=== PATIENT | female | born 1965 | race African-American/Black ===

== ENCOUNTER 2018-09-11 15:07 | Inpatient (IN) | payer OTHER ==
[~2018-09-11] VITALS: Ht 160 cm; Wt 44.5 kg
[2018-09-11] MEDS ORDERED: SODIUM CHLORIDE 0.9% 1,000 ML IV ONE ×2 (16:16→18:30)
[2018-09-11 17:36] LABS: BASOPHILS % 0.4 % (0.0-2.0); EOSINOPHILS % 1.7 % (0.0-5.0); HEMATOCRIT. 31.6 % (36.0-48.0); HEMOGLOBIN. 10.9 g/dL (12.0-16.0); LYMPHOCYTES % 11.6 % (20.0-50.0); MEAN CORPUSCULAR HEMOGLOBIN 34.6 pg (28.0-32.0); MEAN CORPUSCULAR VOLUME 100.2 fL (81.0-99.0); MEAN PLATELET VOLUME 6.9 fl (7.4-10.4); MONOCYTES % 7.7 % (2.0-8.0); NEUTROPHILS % 78.6 % (40.0-76.0); PLATELET 342 x1000/uL (130-400); RED BLOOD CELL COUNT 3.16 mill/uL (4.2-5.4); RED CELL DISTRIBUTION WIDTH 12.4 % (11.6-14.6)
[2018-09-11 17:39] LABS: CHLORIDE 93 mEq/L (98-107)
[2018-09-11 17:40] LABS: INR 1.1
[2018-09-11] MEDS ORDERED: CALCIUM GLUCONATE 100MG/ML 10ML VIAL IV ONE (18:00)
[2018-09-11] MEDS ORDERED: FUROSEMIDE 40MG/4ML VIAL IVP ONE (18:00)
[2018-09-11] MEDS ORDERED: ALBUTEROL (0.5%) 2.5MG/0.5ML NEB HHN ONE (18:00)
[2018-09-11] MEDS ORDERED: CALCIUM GLUCONATE 1,000 MG in DEXTROSE 5% WATER 50 ML IV ONE (18:30)
[2018-09-11 19:05] LABS: CLARITY URINE CLEAR (CLEAR); COLOR URINE YELLOW (YELLOW); KETONES URINE NEGATIVE (NEGATIVE); LEUKOCYTE ESTERASE URINE NEGATIVE (NEGATIVE); NITRITE URINE NEGATIVE (NEGATIVE); OCCULT BLOOD URINE TRACE (NEGATIVE); PH URINE 5.5 (4.5-8.0); PROTEIN URINE NEGATIVE (NEGATIVE); SPECIFIC GRAVITY URINE 1.014 (1.005-1.030); UROBILINOGEN URINE 0.2 E.U./dL (0.2-1.0)
[2018-09-12] VITALS (9 sets, daily range): BP systolic 106–117; BP diastolic 63–76
[2018-09-12] MEDS: SODIUM CHLORIDE 0.9% 1,000 ML IV SCH ×2 (01:28→11:02)
[2018-09-12] MEDS ORDERED: SODIUM POLYSTYRENE SULFONATE 15 G/60 ML BOT PO NR (04:00)
[2018-09-12 06:56] LABS: BASOPHILS % 0.2 % (0.0-2.0); EOSINOPHILS % 1.8 % (0.0-5.0); HEMATOCRIT. 30.3 % (36.0-48.0); HEMOGLOBIN. 10.4 g/dL (12.0-16.0); LYMPHOCYTES % 10.7 % (20.0-50.0); MEAN CORPUSCULAR HEMOGLOBIN 34.1 pg (28.0-32.0); MEAN CORPUSCULAR VOLUME 99.7 fL (81.0-99.0); MONOCYTES % 7.3 % (2.0-8.0); PLATELET 327 x1000/uL (130-400); RED BLOOD CELL COUNT 3.04 mill/uL (4.2-5.4); RED CELL DISTRIBUTION WIDTH 12.3 % (11.6-14.6)
[2018-09-12] MEDS: HEPARIN 5000 UNITS/ML VIAL SUBCUT SCH ×2 (09:17→22:13)
[2018-09-12] MEDS ORDERED: CLONIDINE 0.1MG TABLET PO PRN (10:30)
[2018-09-12] MEDS ORDERED: ACETAMINOPHEN 325MG TABLET PO PRN (10:30)
[2018-09-12] MEDS ORDERED: DIPHENHYDRAMINE 50MG/ML VIAL IV PRN (10:30)
[2018-09-12] MEDS ORDERED: ONDANSETRON HCL 4MG/2ML INJ IV PRN (10:30)
[2018-09-12] MEDS ORDERED: ACETAMINOPHEN 650MG SUPP PR PRN (10:30)
[2018-09-12] MEDS ORDERED: POTASSIUM CHLORIDE INJ 40 MEQ in DEXT 5% WATER 250 ML IV SCH (11:30)
[2018-09-12] MEDS: SODIUM CHLORIDE 0.45% 1,000 ML IV SCH (13:38)
[2018-09-12] MEDS: HYDROCODONE/ACETAMINOPHEN 5/325MG TABLET PO PRN ×2 (17:16→23:52)
[2018-09-12] MEDS: METRONIDAZOLE 500MG TABLET PO SCH (22:12)
[2018-09-13] VITALS (8 sets, daily range): BP systolic 104–119; BP diastolic 61–84
[2018-09-13] MEDS: SODIUM CHLORIDE 0.45% 1,000 ML IV SCH ×3 (04:41→17:11)
[2018-09-13] MEDS: METRONIDAZOLE 500MG TABLET PO SCH ×2 (05:58→14:00)
[2018-09-13 07:11] LABS: HEMATOCRIT 30.2 % (36.0-48.0); HEMOGLOBIN 10.1 g/dL (12.0-16.0); MEAN CORPUSCULAR HEMOGLOBIN 33.8 pg (28.0-32.0); MEAN CORPUSCULAR VOLUME 100.7 fL (81.0-99.0); PLATELET 330 x1000/uL (130-400); RED CELL DISTRIBUTION WIDTH 12.4 % (11.6-14.6)
[2018-09-13 07:25] LABS: CHLORIDE 111 mEq/L (98-107)
[2018-09-13] MEDS: HYDROCODONE/ACETAMINOPHEN 5/325MG TABLET PO PRN ×2 (08:23→13:57)
[2018-09-13] MEDS: HEPARIN 5000 UNITS/ML VIAL SUBCUT SCH (08:23)
[2018-09-13] MEDS ORDERED: APIXABAN 5 MG TABLET PO SCH (17:00)
== END 2018-09-13 19:00 | DRG 469 ==
LOC: ER 15:07 → ENRESERV 22:43 → 3WST 09-12
PROVIDERS: ADMIT Internal Medicine; ATTEND Internal Medicine
DX: N17.9 Acute kidney failure, unspecified (principal); E43 Unspecified severe protein-calorie malnutrition; E87.1 Hypo-osmolality and hyponatremia; N13.30 Unspecified hydronephrosis; I10 Essential (primary) hypertension; E87.5 Hyperkalemia; D64.9 Anemia, unspecified; N31.9 Neuromuscular dysfunction of bladder, unspecified; E86.0 Dehydration; J45.909 Unspecified asthma, uncomplicated; J98.11 Atelectasis; R62.7 Adult failure to thrive; R19.7 Diarrhea, unspecified; Z87.891 Personal history of nicotine dependence; Z68.1 Body mass index [BMI] 19.9 or less, adult; Z88.0 Allergy status to penicillin
CPT/HCPCS: 36415; 72141; 74176; 80048; 83605; 84132; 84484; 85027; 87493; 93005; 93306; 93970; 94640; 96365; 96375; 97163; 99285; J0610; J1644; J1940; J3480; J7030; J7040; J7060; J7611